=== PATIENT | female | born 1950 | race African-American/Black ===

== ENCOUNTER → 2018-10-22 | Emergency (ER) | payer OTHER ==
[~2018-10-22] VITALS: Ht 165.1 cm; Wt 96.2 kg
[~2018-10-22] MED LIST: LISINOPRIL5 MG
== END | disposition home or self-care (01) ==
LOC: ER 10:03
DX: S80.02XA Contusion of left knee, initial encounter (principal); W18.39XA Other fall on same level, initial encounter; Y93.89 Activity, other specified; Y92.488 Other paved roadways as the place of occurrence of the external cause; Y99.8 Other external cause status